=== PATIENT | female | born 1980 | race Caucasian/White ===

== ENCOUNTER 2023-11-08 17:21 | Emergency (ER) | payer OTHER, SELFPAY ==
[2023-11-08 17:30] VITALS: BP 140/96
[2023-11-08 18:02] VITALS: BMI 27.2
--- NOTE | 2023-11-08 19:37 | ED.GENMED ---
History of Present Illness
<Mikey Martinez MD, Resident - Last Filed: 11/08/23 20:43>
General
Chief Complaint: Skin Surface Trauma
Source: patient
Time Seen by Provider: 11/08/23 18:02
History of Present Illness
History of Present Illness:
43-year-old female, Ms. Shea Saleem with pmh of asthma presented with a lacerated wound on the right knee. Patient was standing up from her couch, slipped and hit her right knee onto the cemented corner of her fireplace. She sustained a large
deep laceration onto her right knee. Patient did not hit her head during the fall. No lightheadedness/dizziness/loss of consciousness during/before/after the fall. Patient is not on any blood thinners. Last tetanus shot�5 and 1/2 years ago.
Past History
<Mikey Martinez MD, Resident - Last Filed: 11/08/23 20:43>
Past History
ED Past Medical History: Other (Seasonal allergies)
ED Past Surgical History: None
Social History
Tobacco: Non-smoker
Personal:
Living: with family
Employment: Employed
Family History
Family History: Other (Noncontributory)
Review of Systems
<Mikey Martinez MD, Resident - Last Filed: 11/08/23 20:43>
Review of Systems
All Other Systems: ROS reviewed and negative except as documented in HPI and ROS
Phy Exam
<Mikey Martinez MD, Resident - Last Filed: 11/08/23 20:43>
Physical Exam
Physical Exam:
GEN: Well appearing
Eyes: PERRLA, EOMs intact, no scleral icterus
HENT: NCAT, oral mucosa moist, no JVD, no cervical adenopathy.
Lungs: CTAB, no wheezes, rales, rhonchi, normal chest wall excursion
Cardiac: RRR, no M/R/G, no peripheral edema. Radial pulses 2+ bilat
Neuro: AO x 3, no focal deficits
MSK: 8 cm lacerated wound on the right knee, anterior aspect. Distal neurovasculature intact. Range of motion in the knee restricted due to pain.
Psych: Calm, cooperative, proper hygiene
Course
<Mikey Martinez MD, Resident - Last Filed: 11/08/23 20:43>
Orders/Labs/Results
Orders:
Orders
11/08/23 17:38
CR Knee- Right 4 Or More View* Urgent
Comment:
Reason For Exam: fall, pain
11/08/23 20:11
Cephalexin Monohydrate [Keflex] 500 mg PO NOW STA
Vital Signs
Initial and Last Documented VS:
Initial Vital Signs
Temp Pulse Resp BP Pulse Ox
97.9 F 95 16 140/96 98
11/08/23 17:30 11/08/23 17:30 11/08/23 17:30 11/08/23 17:30 11/08/23 17:30
Last Documented Vital Signs
Temp Pulse Resp BP Pulse Ox
97.9 F 89 16 135/88 98
11/08/23 17:30 11/08/23 19:51 11/08/23 19:51 11/08/23 19:51 11/08/23 19:51
<Mamadou Lawler DO - Last Filed: 11/08/23 20:18>
Orders/Labs/Results
Orders:
Orders
11/08/23 17:38
CR Knee- Right 4 Or More View* Urgent
Comment:
Reason For Exam: fall, pain
11/08/23 20:11
Cephalexin Monohydrate [Keflex] 500 mg PO NOW STA
Vital Signs
Initial and Last Documented VS:
Initial Vital Signs
Temp Pulse Resp BP Pulse Ox
97.9 F 95 16 140/96 98
11/08/23 17:30 11/08/23 17:30 11/08/23 17:30 11/08/23 17:30 11/08/23 17:30
Last Documented Vital Signs
Temp Pulse Resp BP Pulse Ox
97.9 F 89 16 135/88 98
11/08/23 17:30 11/08/23 19:51 11/08/23 19:51 11/08/23 19:51 11/08/23 19:51
Procedures
<Mikey Martinez MD, Resident - Last Filed: 11/08/23 20:43>
Laceration Closure
Right Knee:
Status of Wound: clean
Size of Wound in cm: 8 (8 cm, deep lacerated wound.)
Description of Wound Edges: sharp
Preparation: cleaned with saline and cleaned with Betadine
Anesthesia: 1% Lidocaine
Type of Closure: layered closure (Closed in 2 layers.), interrupted sutures and mattress sutures
Skin Closure Material: 4-0 nylon and 4-0 vicryl
Number of sutures: 14 (Total 14 sutures, 5 deep, 9 skin sutures-6 interrupted, 3 mattress.)
<Mikey Martinez MD, Resident - Last Filed: 11/08/23 20:43>
MDM/Problems Addressed
Differential Diagnosis Includes:
Deep lacerated wound of the right knee
MDM/Problems Addressed:
No radiographically demonstrable fracture. No dislocation. No joint effusion.
Wound is cleaned and sutured under local anesthesia. Please see procedure note.
Patient tolerated the procedure well.
Started on oral Keflex.
Given her instructions about wound care.
<Mikey Martinez MD, Resident - Last Filed: 11/08/23 20:43>
*Critical Care Note
Total Time (30-74mins, 75-104mins- exclusive of procedures): Not Applicable
ED Attending Note
<Joseantonio Saul Martinez MD, Resident - Last Filed: 11/08/23 20:43>
-
Portions of this chart may have been created with voice recognition software.� Occasional wrong word or��sound alike� substitutions may have occurred due to the inherent limitations of voice recognition software.
<Mamadou Lawler, DO - Last Filed: 11/08/23 20:18>
ED Attending Note
Patient seen and examined by attending physician: Yes
I performed a history and physical exam of patient and discussed management with resident, I reviewed resident's note and agree with documented findings and plan of care.: Yes
ED Attending Note:
Patient presents with a laceration to her right knee after falling onto the edge of a prior place. Patient did ambulate after the fall.
Physical exam
8 cm laceration over the right knee. Extensor mechanism is intact. After the wound was anesthetized I was able to explore to the base of the wound. It does extend down to the fascial layer but the patella is not exposed. No active bleeding at
this time. No foreign bodies noted.
Wound was extensively irrigated with normal saline. Wound edges were prepped with Betadine.
See residents note for details of suturing but the wound was close to 2 layers. 5 buried Vicryl sutures were placed as well as combination of vertical mattress and simple interrupted sutures.
Recommend sutures remain in for 10 days. We will prophylax with Keflex given the depth of the wound. Tetanus is up-to-date.
Discharge Plan
Departure
Patient Disposition: Home (Routine Discharge)
Date of Disposition: 11/08/23
Time of Disposition: 20:22
Patient with high blood pressure during this ER visit?: Yes
Discharge Problem:
Deep laceration of knee
Instructions: Wound Care (DC), Laceration Repair With Stitches (DC)
Prescriptions:
New
cephalexin 500 mg capsule
500 mg PO BID 3 Days Qty: 6 0RF
No Action
fexofenadine-pseudoephedrine [Ami-D 12 Hour] 1 EACH tablet extended release 12 hr
1 ea PO DAILY
albuterol sulfate [Proventil HFA] 90 MCG/PUFF HFA aerosol inhaler
2 puff inhalation Q4HPRN PRN (Reason: shortness of breath, cough) Qty: 1 0RF
Referrals:
UNKNOWN - PT DOES,NOT KNOW [Family Provider] -
Activity Restrictions/Additional Instructions:
Patient given wound care instructions before discharge.
Keflex for 3 days.
Advised to use knee immobilizer as tolerated.
Interventions
Interventions:
*Risk Screen - Suicide Last Done: 11/08/23 17:30
*General Assessment Last Done: 11/08/23 17:30
*Neglect/Abuse Screening Last Done: 11/08/23 17:30
ED- Fall Risk Assessment Last Done: 11/08/23 18:02
*ED COVID-19 Vaccine History Last Done: 11/08/23 17:30
ED-Skin Assessment Last Done: 11/08/23 18:02
Discharge Date and Time
Print Language: DIVEHI
[2023-11-08 19:51] VITALS: BP 135/88
[2023-11-08] MEDS: KEFLEX 500 MG PO (20:14)
== END 2023-11-08 20:51 | disposition home or self-care (01) ==
LOC: EMR 17:21
PROVIDERS: EMERGENCY PHYSICIAN Emergency Medicine
DX: S81.011A Laceration without foreign body, right knee, initial encounter (principal); W01.198A Fall on same level from slipping, tripping and stumbling with subsequent striking against other object, initial encounter; Y92.009 Unspecified place in unspecified non-institutional (private) residence as the place of occurrence of the external cause; R03.0 Elevated blood-pressure reading, without diagnosis of hypertension; J45.909 Unspecified asthma, uncomplicated
CPT/HCPCS: 99283; 12034; 73564